=== PATIENT | female | born 1940 | race Caucasian/White ===

== ENCOUNTER 2017-05-05 14:48 | Day surgery (SDC) | payer OTHER ==
[2017-05-02 09:36] VITALS: BMI 36.3
[2017-05-05] MEDS ORDERED: LIDOCAINE HCL 1%, 10 MG/ML (20ML VIAL) ONE (18:39)
--- NOTE | 2017-05-05 18:59 | OP ---
Operative Note - Note: Operative Date: 05/05/17 Pre-Operative Diagnosis: urge incontinence/neurogenic bladder Operation: full interstim implant Implants: medtronic interstim implant Post-Operative Diagnosis: Same as Pre-op Surgeon: Jl Benoit Anesthesia: Fractional
[2017-05-05] MEDS ORDERED: ceFAZolin SODIUM 1 GM VIAL IVPB ONE (19:00)
[2017-05-05] MEDS ORDERED: MIDAZOLAM HCL 2 MG/2 ML SINGLE DOSE VIAL ONE (19:01)
[2017-05-05] MEDS ORDERED: PROPOFOL 20 ML ONE (19:09)
[2017-05-05] MEDS ORDERED: LIDOCAINE HCL 1%, 10 MG/ML (50 mL VIAL) IJ ONE ×2 (19:29)
[2017-05-05] MEDS ORDERED: ONDANSETRON 4 MG/2 ML VIAL IVPUSH PRN (20:16)
[2017-05-05] MEDS ORDERED: ACETAMINOPHEN 500 MG TABLET (FP) PO PRN (20:16)
[2017-05-05] MEDS ORDERED: oxyCODONE HCL 5 MG TABLET PO PRN (20:16)
[2017-05-05] MEDS ORDERED: LACTATED RINGERS SOLUTION 1,000 ML IV SCH (20:30)
[2017-05-05 20:44] VITALS: PULSE 66
[2017-05-05 23:10] VITALS: BP 150/90; TEMP 97.4
== END 2017-05-05 22:00 | disposition home or self-care (01) ==
LOC: JASU-SURG 14:48 → J6S 21:48 → JASU-SURG 22:00
PROVIDERS: ATTEND Urology
PROC: 01HY0MZ Insertion of Neurostimulator Lead into Peripheral Nerve, Open Approach (ICD-10-PCS; 2017-05-05)
PROC: 0JH70BZ Insertion of Single Array Stimulator Generator into Back Subcutaneous Tissue and Fascia, Open Approach (ICD-10-PCS; principal; 2017-05-05 17:15)
DX: N39.41 Urge incontinence (principal); N31.9 Neuromuscular dysfunction of bladder, unspecified
CPT/HCPCS: 64581; 64590; C1767; C1778; 76000-TC; 94760